=== PATIENT | male | born 1945 | race Caucasian/White ===

== ENCOUNTER 2019-03-18 06:57 | Day surgery (SDC) | payer OTHER ==
[2019-03-18] MEDS ORDERED: LIDOCAINE 4% SOLUTION 50 ML BTL (09:16)
[2019-03-18] MEDS ORDERED: MIDAZOLAM 1 MG/ML 2 ML INJ ×3 (09:16→10:10)
[2019-03-18] MEDS ORDERED: PROPOFOL 20 ML (09:16)
[2019-03-18] MEDS ORDERED: LIDOCAINE 2% (SDV) 5 ML INJ (09:17)
[2019-03-18] MEDS ORDERED: ETOMIDATE 20 MG INJ (09:17)
[2019-03-18] MEDS ORDERED: FENTAnyl 50 MCG/ML VIAL (10:09)
== END 2019-03-18 11:49 | disposition home or self-care (01) ==
LOC: GIL 06:57
DX: Z12.11 Encounter for screening for malignant neoplasm of colon (principal); K64.8 Other hemorrhoids; K57.30 Diverticulosis of large intestine without perforation or abscess without bleeding; D12.5 Benign neoplasm of sigmoid colon; K21.9 Gastro-esophageal reflux disease without esophagitis; I10 Essential (primary) hypertension
CPT/HCPCS: 43239; 88305